=== PATIENT | female | born 1980 | race African-American/Black ===

== ENCOUNTER 2020-01-07 04:35 | Emergency (ER) | payer SELFPAY ==
[~2020-01-07] VITALS: Ht 165.1 cm; Wt 91.0 kg
[2020-01-07 04:37] VITALS: BP 145/76
[2020-01-07] MEDS ORDERED: IBUPROFEN 600MG TABLET PO ONE (06:30)
== END 2020-01-07 06:28 | disposition home or self-care (01) ==
LOC: ER 04:57
DX: H66.91 Otitis media, unspecified, right ear (principal)
CPT/HCPCS: 99283